=== PATIENT | female | born 1985 | race African-American/Black ===

== ENCOUNTER 2022-03-29 17:34 | Emergency (ER) | payer OTHER, SELFPAY ==
[2022-03-29 17:38] VITALS: BP 145/96; PULSE 94; RESP 18; TEMP 36.6; O2SAT 100
--- NOTE | 2022-03-29 20:46 | PC.NURSE ---
no answer at triage
== END 2022-03-29 21:49 | disposition left against medical advice (07) ==
PROVIDERS: PCP Internal Medicine Infectious Disease
DX: R07.9 Chest pain, unspecified (principal)
CPT/HCPCS: 99199